=== PATIENT | female | born 1980 | race Caucasian/White ===

== ENCOUNTER 2025-01-04 15:03 | Inpatient (IN) | payer OTHER ==
[~2025-01-04] VITALS: Ht 167.6 cm; Wt 63.5 kg
[2025-01-04 15:08] VITALS: O2SAT 100
[2025-01-04 16:16] LABS: BASOPHILS % 0.2 % (0.0-2.0); DIFFERENTIAL COMMENT 0; EOSINOPHILS % 0.1 % (0.0-5.0); HEMATOCRIT. 40.9 % (36.0-48.0); HEMOGLOBIN. 13.3 g/dL (12.0-16.0); LYMPHOCYTES % 12.6 % (20.0-50.0); MEAN CORPUSCULAR HEMOGLOBIN 25.5 pg (28.0-32.0); MEAN CORPUSCULAR HGB CONC 32.4 g/dL (31.0-37.0); MEAN CORPUSCULAR VOLUME 78.8 fL (81.0-99.0); MEAN PLATELET VOLUME 8.7 fl (7.4-10.4); MONOCYTES % 2.8 % (2.0-8.0); NEUTROPHILS % 84.3 % (40.0-76.0); PLATELET 224 x1000/uL (130-400); RED BLOOD CELL COUNT 5.19 mill/uL (4.2-5.4); RED CELL DISTRIBUTION WIDTH 14.1 % (11.6-14.6); WHITE BLOOD COUNT 10.2 x1000/uL (4.5-11.0)
[2025-01-04 16:27] LABS: PROTHROMBIN TIME 10.7 sec (9.6-11.0)
[2025-01-04 16:33] LABS: CHLORIDE 101 mEq/L (98-107); HCG SCREEN NEGATIVE; SODIUM 134 mEq/L (136-145)
[2025-01-04 16:34] LABS: CALCIUM 9.3 mg/dL (8.7-10.4); CARBON DIOXIDE 25 mEq/L (21-32)
[2025-01-04 16:39] LABS: CREATININE 0.7 mg/dL (0.6-1.0); ETHANOL BLOOD < 10 mg/dL (<10); GLUCOSE 99 mg/dL (70-105); UREA NITROGEN BLOOD 15 mg/dL (9-23)
[2025-01-04] MEDS ORDERED: DOCUSATE SODIUM 100MG CAPSULE PO PRN (17:00)
[2025-01-04] MEDS ORDERED: CLONIDINE 0.1MG TABLET PO PRN (17:00)
[2025-01-04] MEDS ORDERED: LORAZEPAM 0.5MG TABLET PO PRN (17:00)
[2025-01-04] MEDS ORDERED: ACETAMINOPHEN 325MG TABLET PO PRN (17:00)
[2025-01-04] MEDS ORDERED: DEXTROSE 50% WATER 50ML SYRINGE IV PRN (17:00)
[2025-01-04] MEDS ORDERED: IPRATROPIUM/ALBUTEROL 0.5-3(2.5)MG/3ML NEB HHN PRN (17:00)
[2025-01-04] MEDS ORDERED: GUAIFENESIN 200MG/10ML SUGAR FREE UDC PO PRN (17:00)
[2025-01-04] MEDS ORDERED: ONDANSETRON HCL 4MG/2ML INJ IV PRN (17:00)
[2025-01-04 17:04] LABS: TROPONIN I HIGH SENSITIVITY < 4 ng/L (3.0-34)
[2025-01-04] MEDS: KETOROLAC 30MG/ML VIAL IV NR (17:52)
[2025-01-04] MEDS: PREDNISONE 20MG TABLET PO NR (17:52)
[2025-01-04] MEDS: IOHEXOL-350 100 ML BOTTLE ONE (17:52)
[2025-01-04] MEDS: INSULIN LISPRO 100 UNITS/ML SUBCUT SCH (18:20)
[2025-01-04] MEDS: BLOOD SUGAR DIAGNOSTIC STRIP TEST SCH (18:20)
[2025-01-04] MEDS ORDERED: KETOROLAC 30MG/ML VIAL IV PRN (18:30)
[2025-01-04 18:59] VITALS: BP 107/56; PULSE 72; RESP 15; TEMP 36.4; O2SAT 100
[2025-01-04] MEDS ORDERED: ESTR1PAT83 TP (20:00)
[2025-01-04] MEDS ORDERED: PROG100C10 PO (20:00)
[2025-01-04] MEDS: ACETAMINOPHEN 325MG TABLET PO PRN (21:32)
[2025-01-04 22:46] LABS: CREATINE KINASE 87 IU/L (34-145)
[2025-01-04] MEDS ORDERED: IOHEXOL-350 100 ML BOTTLE ONE (23:02)
[2025-01-05 06:48] LABS: CALCIUM 9.5 mg/dL (8.7-10.4); CARBON DIOXIDE 24 mEq/L (21-32); CHLORIDE 105 mEq/L (98-107); POTASSIUM 4.4 mEq/L (3.5-5.1); SODIUM 137 mEq/L (136-145)
[2025-01-05 06:53] LABS: CREATININE 0.8 mg/dL (0.6-1.0); GLUCOSE 131 mg/dL (70-105); UREA NITROGEN BLOOD 14 mg/dL (9-23)
[2025-01-05 06:54] LABS: CREATINE KINASE 68 IU/L (34-145)
[2025-01-05 07:11] LABS: BASOPHILS % 0.1 % (0.0-2.0); DIFFERENTIAL COMMENT 0; HEMATOCRIT. 39.7 % (36.0-48.0); LYMPHOCYTES % 12.8 % (20.0-50.0); MEAN CORPUSCULAR HEMOGLOBIN 25.7 pg (28.0-32.0); MEAN CORPUSCULAR HGB CONC 32.9 g/dL (31.0-37.0); MEAN PLATELET VOLUME 8.9 fl (7.4-10.4); MONOCYTES % 3.5 % (2.0-8.0); NEUTROPHILS % 83.6 % (40.0-76.0); PLATELET 210 x1000/uL (130-400); RED BLOOD CELL COUNT 5.09 mill/uL (4.2-5.4); RED CELL DISTRIBUTION WIDTH 14.2 % (11.6-14.6); WHITE BLOOD COUNT 9.7 x1000/uL (4.5-11.0)
[2025-01-05 08:00] VITALS: BP 102/54; PULSE 72; RESP 16; TEMP 36.7; O2SAT 99
[2025-01-05] MEDS: ASPIRIN 81MG TABLET PO SCH (08:35)
[2025-01-05 12:00] VITALS: BP 106/45; PULSE 78; RESP 16; TEMP 36.8; O2SAT 99
[2025-01-05 13:26] LABS: CLARITY URINE CLEAR (CLEAR); COLOR URINE YELLOW (YELLOW); GLUCOSE URINE NEGATIVE (NEGATIVE); KETONES URINE NEGATIVE (NEGATIVE); LEUKOCYTE ESTERASE URINE NEGATIVE (NEGATIVE); NITRITE URINE NEGATIVE (NEGATIVE); OCCULT BLOOD URINE NEGATIVE (NEGATIVE); PH URINE 6.5 (4.5-8.0); PROTEIN URINE NEGATIVE (NEGATIVE); SPECIFIC GRAVITY URINE 1.009 (1.005-1.030); UROBILINOGEN URINE 0.2 E.U./dL (0.2-1.0)
[2025-01-05 14:00] LABS: *AMPHETAMINES SCREEN URINE NEGATIVE (NEGATIVE)
[2025-01-05 14:01] LABS: *BARBITURATES SCREEN URINE NEGATIVE (NEGATIVE); *BENZODIAZEPINES SCREEN URINE NEGATIVE (NEGATIVE); *COCAINE SCREEN URINE NEGATIVE (NEGATIVE); CANNABINOID URINE SCREEN NEGATIVE (NEGATIVE); ECSTASY MDMA SCREEN URINE NEGATIVE (NEGATIVE); METHADONE URINE SCREEN NEGATIVE (NEGATIVE); OPIATES URINE SCREEN NEGATIVE (NEGATIVE); PHENCYCLIDINE URINE SCREEN NEGATIVE (NEGATIVE)
[2025-01-05 16:00] VITALS: BP 100/54; PULSE 74; RESP 16; TEMP 36.8; O2SAT 98
[2025-01-05] MEDS ORDERED: GADOTERATE MEGLUMINE 5 MMOL/10 ML VIAL IV ONE (16:40)
[2025-01-05 16:58] LABS: C REACTIVE PROTEIN HIGH SENS 2.37 mg/l (<1.00)
[2025-01-05 17:03] LABS: THYROID STIMULATING HORMONE 1.35 uIU/mL (0.55-4.78); VITAMIN B12 SERUM 544 pg/mL (211-911)
[2025-01-05 20:00] VITALS: BP 102/86; PULSE 70; RESP 17; TEMP 35.9; O2SAT 96
[2025-01-05] MEDS: ATORVASTATIN CALCIUM 40MG TABLET PO SCH (21:47)
[2025-01-06] VITALS: BP 109/92; PULSE 70; RESP 17; TEMP 36.4; O2SAT 94
[2025-01-06 04:00] VITALS: BP 94/54; PULSE 86; RESP 17; TEMP 36.6; O2SAT 96
[2025-01-06 07:31] LABS: BASOPHILS % 0.5 % (0.0-2.0); DIFFERENTIAL COMMENT 0; EOSINOPHILS % 1.3 % (0.0-5.0); HEMATOCRIT. 37.6 % (36.0-48.0); HEMOGLOBIN. 12.3 g/dL (12.0-16.0); LYMPHOCYTES % 39.6 % (20.0-50.0); MEAN CORPUSCULAR HEMOGLOBIN 25.6 pg (28.0-32.0); MEAN CORPUSCULAR HGB CONC 32.8 g/dL (31.0-37.0); MEAN CORPUSCULAR VOLUME 78.2 fL (81.0-99.0); MEAN PLATELET VOLUME 8.7 fl (7.4-10.4); MONOCYTES % 6.6 % (2.0-8.0); PLATELET 210 x1000/uL (130-400); RED BLOOD CELL COUNT 4.81 mill/uL (4.2-5.4); RED CELL DISTRIBUTION WIDTH 14.2 % (11.6-14.6); WHITE BLOOD COUNT 8.6 x1000/uL (4.5-11.0)
[2025-01-06 07:41] LABS: CHLORIDE 105 mEq/L (98-107); POTASSIUM 4.8 mEq/L (3.5-5.1); SODIUM 140 mEq/L (136-145)
[2025-01-06 07:42] LABS: CALCIUM 9.4 mg/dL (8.7-10.4); CARBON DIOXIDE 30 mEq/L (21-32)
[2025-01-06 07:47] LABS: CREATININE 0.8 mg/dL (0.6-1.0); GLUCOSE 92 mg/dL (70-105); UREA NITROGEN BLOOD 17 mg/dL (9-23)
[2025-01-06 08:00] VITALS: BP 105/49; PULSE 70; RESP 16; TEMP 36.9; O2SAT 98
[2025-01-06 08:33] VITALS: BP 109/42; PULSE 70; RESP 17; TEMP 36.5
[2025-01-06 12:00] VITALS: BP 96/52; PULSE 72; RESP 16; TEMP 36.7; O2SAT 98
== END 2025-01-06 15:16 | disposition home or self-care (01) | DRG 69 ==
LOC: ER 15:03 → EDBEDREQTM 17:04 → EDBEDREQ 17:04 → 5WST 18:54
PROVIDERS: ADMIT Internal Medicine; ATTEND Internal Medicine
DX: G45.9 Transient cerebral ischemic attack, unspecified (principal); E87.1 Hypo-osmolality and hyponatremia; G81.94 Hemiplegia, unspecified affecting left nondominant side; G51.0 Bell's palsy; R29.705 NIHSS score 5; Z82.0 Family history of epilepsy and other diseases of the nervous system; G35 Multiple sclerosis; R29.704 NIHSS score 4; Z78.0 Asymptomatic menopausal state; Z88.2 Allergy status to sulfonamides; Z88.3 Allergy status to other anti-infective agents
CPT/HCPCS: 36415; 70496; 70498; 70551; 70552; 71045; 80048; 80061; 80305; 80320; 81003; 82550; 82607; 82962; 83036; 84443; 84484; 84703; 85025; 85651; 86038; 86141; 93005; 93306; 93970; 99291; A9577; J1885; J7512; Q9967; G0480